=== PATIENT | female | born 1960 | race Two or more races ===

== ENCOUNTER 2016-08-03 15:53 | Inpatient (IN) | payer OTHER ==
[~2016-08-03] VITALS: Ht 157.5 cm; Wt 72.1 kg
[2016-08-03] MEDS ORDERED: IV NS 0.9% 1,000 ML ONE ×2 (16:22→22:09)
[2016-08-03] MEDS ORDERED: ONDANSETRON HCL/PF 4 MG/2 ML VIAL ONE ×2 (16:22→22:08)
[2016-08-03] MEDS ORDERED: IV SET PRIMARY 1 EA INFUS.SET MC ONE ×2 (16:22→18:11)
--- NOTE | 2016-08-03 16:28 | NUR ---
LINE STARTED ON R WRIST G 20, PT TOLERATED WELL
--- NOTE | 2016-08-03 16:29 | NUR ---
LABRATORY AT BEDSIDE FOR BLOOD DRAW
--- NOTE | 2016-08-03 16:29 | NUR ---
PT MEDICATED ORDERED PER DR OLEA
[2016-08-03 16:31] LABS: BASOPHILS # (AUTO) 0.2 /CMM (0.0-0.2); BASOPHILS % (AUTO) 1.3 % (0.0-2.0); EOSINOPHILS # (AUTO) 0.1 /CMM (0.0-0.7); EOSINOPHILS % (AUTO) 0.7 % (0.0-6.0); HEMATOCRIT 43 % (33-45); HEMOGLOBIN 14.8 g/dL (11.5-14.8); MEAN CORPUSCULAR HEMOGLOBIN 30 PG (26.0-33.0); MEAN CORPUSCULAR HGB CONC 35 g/dl (31.0-36.0); MEAN CORPUSCULAR VOLUME 86 fL (82-100); MONOCYTES # (AUTO) 0.1 /CMM (0.1-1.30); MONOCYTES % (AUTO) 1.1 % (2.0-12.0); NEUTROPHILS # (AUTO) 12.2 /CMM (1.8-8.9); NEUTROPHILS % (AUTO) 89.9 % (43.0-81.0); PLATELET COUNT (AUTO) 399 /CMM (150-450); RDW COEFFICIENT OF VARIATION 11.6 (11.5-15.0); RED BLOOD CELL COUNT(AUTO) 4.94 MIL/uL (4.0-5.2); WHITE BLOOD COUNT (AUTO) 13.6 K/uL (4.3-11.0)
[2016-08-03 16:40] LABS: CREATININE 0.8 mg/dL (0.6-1.3); POTASSIUM 3.2 mmol/L (3.5-5.1)
[2016-08-03 16:52] LABS: ALBUMIN 3.7 g/dL (3.4-5.0); BILIRUBIN,DIRECT 0.1 mg/dL (0.0-0.2); TOTAL PROTEIN, SERUM 9.1 g/dL (6.4-8.2)
[2016-08-03] MEDS ORDERED: HYDROCODONE/APAP 5/325MG 1 EACH TABLET PO ONE (17:00)
[2016-08-03] MEDS ORDERED: ONDANSETRON HCL/PF 4 MG/2 ML VIAL IVP ONE (18:00)
[2016-08-03] MEDS ORDERED: METRONIDAZOLE 500MG/ NS 100ML 100 ML IV ONE ×2 (18:00→18:21)
[2016-08-03] MEDS ORDERED: CEFTRIAXONE 1 G in IV D5W 50 ML IV ONE (18:00)
[2016-08-03] MEDS ORDERED: IV NS 0.9% 1,000 ML BAG IV ONE (18:00)
--- NOTE | 2016-08-03 18:00 | NUR ---
DR OLEA ON THE PHONE WITH DR DEJESUS (OUTBOARD TECHNICIAN SURGEON)
[2016-08-03] MEDS ORDERED: CEFTRIAXONE 1GM BAG (ER ONLY) 50 ML IV ONE (18:11)
[2016-08-03] MEDS ORDERED: MORPHINE SULFATE INJ 2 MG/ML DISP.SYRIN ONE ×2 (18:11→22:07)
--- NOTE | 2016-08-03 18:11 | NUR ---
LABRATORY AT BEDSIDE FOR BLOOD DRAW
--- NOTE | 2016-08-03 18:12 | NUR ---
DR OLEA ON THE PHONE WITH ADMITTING DR EMMANUELLE FRAUSTO
[2016-08-03] MEDS ORDERED: IV SET PRIMARY PUMP SET 1 EA INFUS.SET MC ONE ×2 (18:21→22:09)
[2016-08-03] MEDS ORDERED: MORPHINE SULFATE INJ 2 MG/ML DISP.SYRIN IV ONE (18:30)
[2016-08-03] MEDS ORDERED: FAMO40TA7 PO (18:32)
[2016-08-03] MEDS ORDERED: MAG355OR32 PO (18:32)
[2016-08-03 18:37] LABS: INR 1.04 (0.87-1.13); PROTHROMBIN TIME 10.8 SECS (9.5-12.7)
--- NOTE | 2016-08-03 19:20 | NUR ---
DR. DEJESUS AT BEDSIDE FOR MD SEXTON
--- NOTE | 2016-08-03 19:29 | NUR ---
REPORT GIVEN TO KAYDEN GUILLERMO FOR CONTINUITY OF CARE ON MS FLOOR
[2016-08-03 19:47] VITALS: BP 169/102
--- NOTE | 2016-08-03 19:47 | NUR ---
MS RN ADMITTING NOTES: ADMITTED A 56 YO FEMALE PATIENT WHO WAS SEEN IN THE ER DUE TO EPIGASTRIC PAIN AND VOMITING . PATIENT WITH ADMITTING DIAGNOSIS OF CHOLELITHIASIS. PATIENT WAS BROUGHT TO [facility] FLOOR VIA WHEELCHAIR, AOX4, ON ROOM AIR, BREATHING EVEN AND UNLABORED. PATIENT C/O PAIN AT 10/10 OVER EPIGASTRIC AREA RADIATING TO MID UPPER BACK. PATIENT IS ALSO NAUSEOUS. HOB MAINTAINED ELEVATED. PIV OVER R WRIST G20 INTACT AND PATENT TO FLUSH. PROVIDED FOR COMFORT AND SAFETY. BED IN LOWEST AND LOCKED POSITION, SIDERAILS UP X3. MAINTAINED ON NPO. ORIENTED TO UNIT. ADMITTING CARE DONE. WILL CONT TO MONITOR.
[2016-08-03 20:00] VITALS: BP 169/102
--- NOTE | 2016-08-03 20:44 | NUR ---
RN NOTES: PAGED DR JENKINS TO FF UP ON ADMITTING ORDERS.
--- NOTE | 2016-08-03 21:20 | NUR ---
RN NOTES: PAGED EPIC AGAIN TO FFUP ON ADMITTING ORDERS.
[2016-08-03] MEDS ORDERED: HYDROCODONE/APAP 5/325MG 1 EACH TABLET PO PRN (22:00)
[2016-08-03] MEDS ORDERED: MORPHINE SULFATE INJ 2 MG/ML DISP.SYRIN IV PRN (22:00)
[2016-08-03] MEDS ORDERED: ONDANSETRON HCL/PF 4 MG/2 ML VIAL IVP PRN (22:00)
[2016-08-03] MEDS ORDERED: POTASSIUM CL. PREMIX PERIPHER. 100 ML ONE (22:08)
[2016-08-03] MEDS: IV NS 0.9% 1,000 ML IV PRN (22:18)
[2016-08-03] MEDS: POTASSIUM CL. PREMIX PERIPHER. 50 ML IV SCH ×2 (22:29→23:40)
[2016-08-03 22:30] VITALS: BP 147/89
--- NOTE | 2016-08-03 22:47 | NUR ---
RN NOTES: PATIENT WAS SEEN BY DR EMMANUELLE ALCANTARA. PER , ZOSYN TO BE STARTED AT 0000 MIDNIGHT INSTEAD OF AT 0500. MD MADE AWARE OF ANTIBIOTICS STARTED IN THE ER. WILL CONT TO MONITOR.
--- NOTE | 2016-08-03 22:59 | NUR ---
RN NOTES: PATIENT SIGNED CONSENTS FOR LAPAROSCOPIC CHOLECYSTECTOMY, POSS OPEN WITH DR DEJESUS.
[2016-08-03] MEDS ORDERED: PIPERACILLIN /TAZOBACTAM 2.25 G VIAL IV ONE (23:31)
[2016-08-03] MEDS ORDERED: IV D5W 50 ML IV ONE (23:32)
[2016-08-03] MEDS ORDERED: SECONDARY IV SET 1 EA INFUS.SET MC ONE (23:32)
[2016-08-04] MEDS ORDERED: PIPERACILLIN /TAZOBACTAM 4.5 G in IV D5W 50 ML IV SCH ×4 (05:00→08:00)
[2016-08-04] MEDS ORDERED: IV NS 0.9% 1,000 ML ONE (05:49)
[2016-08-04] MEDS: IV NS 0.9% 1,000 ML IV PRN (05:54)
[2016-08-04 06:22] LABS: APPEARANCE,URINE CLEAR (CLEAR); BILIRUBIN,URINE NEGATIVE (NEGATIVE); BLOOD, URINE NEGATIVE Ery/uL (NEGATIVE); COLOR,URINE YELLOW (YELLOW); KETONES,URINE 1+ (NEGATIVE); LEUKOCYTE ESTERASE ,URINE NEGATIVE (NEGATIVE); NITRITE, URINE NEGATIVE (NEGATIVE); PROTEIN,URINE NEGATIVE (NEGATIVE); UGLUCOSE NEGATIVE (NEGATIVE); UROBILINOGEN,URINE 0.2 EU/dL (0.2)
[2016-08-04 06:28] LABS: ADD URINE CULTURE NO; BACTERIA,URINE None seen /HPF (None Seen); RBC,URINE NONE SEEN /HPF (0-2); SQUAMOUS EPITHELIAL CELL,UR Few /HPF (None Seen); WBC,URINE 0-2 /HPF (0-3)
--- NOTE | 2016-08-04 06:49 | NUR ---
MS RN CLOSING NOTES: PATIENT IN BED, AOX4, ON ROOM AIR, BREATHING EVEN AND UNLABORED. STATES THAT PAIN OVER EPIGASTRIC AREA HAS DECREASED, BUT UNABLE TO SCALE. PATIENT WAS ABLE TO SLEEP WELL THROUGH NIGHT. MAINTAINED ON NPO. PIV OVER R WRIST G20 INTACT AND INFUSING WELL WITH NS RUNNING AT 125 ML/HR. DUE MEDS GIVEN. PROVIDED FOR COMFORT AND SAFETY. BED IN LOWEST AND LOCKED POSITION, SIDERAILS UP X3. WILL ENDORSE TO AM RN FOR TYLER.
[2016-08-04 08:00] VITALS: BP 150/82
[2016-08-04] MEDS ORDERED: PIPERACILLIN /TAZOBACTAM 3.375 G in IV D5W 50 ML IV SCH (08:00)
--- NOTE | 2016-08-04 08:03 | NUR ---
MS/RN OPENING NOTE PT. IS IN BED SLEEPING. NO S/S OF DISTRESS, NO SOB, BREATHING IS EVEN AND UNLABORED. PT. IS NPO FOR A POSSIBLE DAY SURGERY OF LAPAROSCOPIC CHOLOCYSTECTOMY. PT. HAS IV FLUIDS RUNNING AT 125ML/HR ON RIGHT WRIST. BED IS IN LOW POSITION, 2 SIDE RAILS UP, AND CALL LIGHT WITHIN REACH.
[2016-08-04 08:40] LABS: BASOPHILS # (AUTO) 0.1 /CMM (0.0-0.2); BASOPHILS % (AUTO) 0.4 % (0.0-2.0); EOSINOPHILS % (AUTO) 0.2 % (0.0-6.0); HEMATOCRIT 43 % (33-45); HEMOGLOBIN 14.6 g/dL (11.5-14.8); LYMPHOCYTES % (AUTO) 5.3 % (20.0-44.0); MEAN CORPUSCULAR HEMOGLOBIN 29 PG (26.0-33.0); MEAN CORPUSCULAR HGB CONC 34 g/dl (31.0-36.0); MEAN CORPUSCULAR VOLUME 86 fL (82-100); MONOCYTES # (AUTO) 0.6 /CMM (0.1-1.30); MONOCYTES % (AUTO) 3.2 % (2.0-12.0); NEUTROPHILS # (AUTO) 16.8 /CMM (1.8-8.9); NEUTROPHILS % (AUTO) 90.9 % (43.0-81.0); PLATELET COUNT (AUTO) 374 /CMM (150-450); RDW COEFFICIENT OF VARIATION 12.5 (11.5-15.0); RED BLOOD CELL COUNT(AUTO) 5.03 MIL/uL (4.0-5.2); WHITE BLOOD COUNT (AUTO) 18.5 K/uL (4.3-11.0)
[2016-08-04 08:52] LABS: CALCIUM, SERUM 8.6 mg/dL (8.5-10.1); CREATININE 0.7 mg/dL (0.6-1.3); MAGNESIUM 1.9 mg/dL (1.8-2.4); PHOSPHORUS 3.2 mg/dL (2.5-4.9); POTASSIUM 3.3 mmol/L (3.5-5.1)
[2016-08-04 08:54] LABS: THYROID STIMULATING HORMONE 0.346 uIU/mL (0.358-3.74)
[2016-08-04] MEDS: PANTOPRAZOLE 40 MG VIAL IV SCH (09:45)
[2016-08-04] MEDS: PIPERACILLIN /TAZOBACTAM 3.375 G in IV D5W 50 ML IV SCH ×3 (10:53→22:56)
--- NOTE | 2016-08-04 10:56 | NUR ---
MS/RN PT. LEFT ROOM PT. LEFT ROOM FOR SURGERY IN STABLE CONDITION.
[2016-08-04] MEDS ORDERED: BUPIVACAINE 0.5 % PF 150 MG/30 ML VIAL ONE (11:03)
[2016-08-04] MEDS ORDERED: FENTANYL PF 100MCG/2ML AMPUL ONE (11:20)
[2016-08-04] MEDS ORDERED: MIDAZOLAM HCL 2 MG/2ML VIAL ONE (11:20)
[2016-08-04] MEDS ORDERED: ROCURONIUM BROMIDE 50 MG/5 ML ONE (11:25)
[2016-08-04] MEDS ORDERED: HYDROMORPHONE INJ 2 MG/ML DISP.SYRIN ONE (12:35)
[2016-08-04] MEDS ORDERED: IV LR 1000 ML 1,000 ML ONE (12:42)
[2016-08-04] MEDS ORDERED: MORPHINE SULFATE INJ 4 MG/ML DISP.SYRIN IV PRN (13:00)
[2016-08-04] MEDS ORDERED: HYDROCODONE/APAP 5/325MG 1 EACH TABLET PO PRN (13:00)
[2016-08-04] MEDS ORDERED: MORPHINE SULFATE INJ 2 MG/ML DISP.SYRIN IV PRN (13:00)
[2016-08-04] MEDS ORDERED: IV D5/0.45 NACL W/20 MEQ KCL 1L IV PRN ×2 (13:00)
[2016-08-04 13:20] VITALS: BP 131/82
--- NOTE | 2016-08-04 13:20 | NUR ---
MS/RN RETURN TO SAME ROOM PT. RETURNED TO SAME ROOM POST SURGERY IN STABLE CONDITION. PT. IS BREATHING ON OXYGEN WITH NASAL CANNULA AT 4L/MIN. REPORT WAS GIVEN BY OR NURSE. NEW ORDERS WERE GIVEN BY DR. DEJESUS AFTER SURGERY.
--- NOTE | 2016-08-04 13:30 | NUR ---
MS/RN INCENTIVE SPIROMETER NEAR BEDSIDE PROVIDE AN INCENTIVE SPIROMETER AND PROVIDED TEACHING WITH USING SPIROMETER, PT. RETURNED SHOWED DEMONSTRATION OF TEACHING.
[2016-08-04] MEDS: HYDROCODONE/APAP 5/325MG 1 EACH TABLET PO PRN ×2 (14:40→21:42)
--- NOTE | 2016-08-04 14:43 | NUR ---
MS/RN PT. VOIDED CLEAR, YELLOW URINE 850ML.
--- NOTE | 2016-08-04 15:00 | NUR ---
MS/RN CHRIS STOCKING APPLIED CHRIS COMPRESSION THIGH HIGH STOCKINGS APPLIED TO BOTH LEGS. NEED TO BE CHANGED ONCE EVERY SHIFT PER MD ORDER. WILL ENDORSE TO DRIVING TEACHER NURSE.
[2016-08-04 16:00] VITALS: BP 121/62
--- NOTE | 2016-08-04 19:00 | NUR ---
MS RN OPENING NOTES: RECEIVED PT IN BED AWAKE WITH SON AT BED SIDE. PT IS A/O X4. PT IS ON NC 2LPM AND IS TOLERATING WELL. PT IS POST SURGERY AND HAS R SIDE MATTHIAS DRAIN. PT HAS IV ON R WRIST #20G AND IS PATENT AND INTACT. FLUIDS ARE INFUSING AT POTASSIUM CHLORIDE 20MEQ IN IV D5 1/2 NS 1,000 ML AT 75ML/HR. NO SIGNS OR SYMPTOMS OF DISTRESS NOTED AT THIS TIME. CALL LIGHT WITHIN PT'S REACH. BED KEPT IN LOCKED, LOWEST POSITION, AND SIDE RAILS X 2 UP. WILL CONTINUE TO MONITOR PT.
[2016-08-04] MEDS ORDERED: IV SET PRIMARY PUMP SET 1 EA INFUS.SET MC ONE (19:11)
--- NOTE | 2016-08-04 19:30 | NUR ---
MS/RN CLOSING NOTE PT. IS SITTING UP IN BED WITH FAMILY NEAR BEDSIDE. PT. IS AWAKE, A&OX4. NO S/S OF DISTRESS, NO SOB, PT. IS BREATHING ON OXYGEN WITH NASAL CANNULA AT 2 L/MIN. PT IS WEARING SCD PUMPS, AND THIGH HIGH CHRIS STOCKINGS ON BOTH LEGS. PT. TOLERATED REGULAR DIET PO INTAKE. PT. HAS 4 WOUND DRESSING SITES, INCLUDING J PEG SITE. REMOVED 25 ML FROM J PEG ON PT.'S RIGHT SIDE. PT. HAS IV ANTIBIOTIC RUNNING AT 100ML/HR ON RIGHT WRIST IV SITE. INCENTIVE SPIROMETER IS NEAR BEDSIDE. BED IS IN LOW POSITION, 2 SIDE RAILS UP, CALL LIGHT WITHIN REACH, AND ALL NEEDS ATTENDED TO. WILL ENDORSE REPORT TO AUDIO ENGINEER NURSE.
[2016-08-04 20:00] VITALS: BP 109/63
--- NOTE | 2016-08-04 21:42 | NUR ---
MS RN NOTES: PT COMPLAINED OF 7/10 ABDOMINAL PAIN. NORCO 5-325 (2 TABLETS) WAS GIVEN. WILL CONTINUE TO MONITOR PT.
[2016-08-04] MEDS ORDERED: ZOLPIDEM TARTRATE 5 MG TABLET PO PRN (22:00)
[2016-08-05] MEDS: PIPERACILLIN /TAZOBACTAM 3.375 G in IV D5W 50 ML IV SCH ×2 (05:01→14:25)
--- NOTE | 2016-08-05 07:00 | NUR ---
MS RN CLOSING NOTES: ALL NEEDS WERE ATTENDED AND ANTICIPATED FOR. PT ASLEEP IN BED. NO SIGNS OR SYMPTOMS OF DISTRESS NOTED AT THIS TIME. PT KEPT CLEAN, DRY, AND COMFORTABLE. CALL LIGHT WITHIN PT'S REACH. BED KEPT IN LOCKED, LOWEST POSITION, AND SIDE RAILS X 2 UP. IV IS ON R WRIST #20G AND IS PATENT AND INTACT. FLUIDS ARE INFUSING WITH POTASSIUM CHLORIDE 20MEQ IN IV D5 1/2 NS 1,000ML AT 75ML/HR. R SIDE JPEG OUTPUT WAS 12CC. ENDORSED TO AM NURSE FOR CONTINUITY OF CARE.
--- NOTE | 2016-08-05 07:15 | NUR ---
MS/RN OPENING NOTE PT. IS IN BED SLEEPING. NO S/S OF DISTRESS, NO SOB, BREATHING IS EVEN AND UNLABORED. PT. HAS IV FLUIDS RUNNING AT 75 ML/HR ON RIGHT WRIST. BED IS IN LOW POSITION, 2 SIDE RAILS UP, AND CALL LIGHT WITHIN REACH.
[2016-08-05 08:00] VITALS: BP 122/63
[2016-08-05] MEDS: PANTOPRAZOLE 40 MG VIAL IV SCH (08:33)
[2016-08-05] MEDS: HYDROCODONE/APAP 5/325MG 1 EACH TABLET PO PRN (08:34)
--- NOTE | 2016-08-05 08:44 | NUR ---
MS/RN RIGHT IV INFILTRATION RIGHT WRIST IV SITE WAS SWOLLEN. RIGHT ARM WAS ELEVATED WITH 2 PILLOWS.
--- NOTE | 2016-08-05 09:00 | NUR ---
MS/RN NEW IV SITE NEW IV SITE WAS PLACED WITHOUT COMPLICATIONS ON LEFT HAND, GAUGE 22.
[2016-08-05] MEDS ORDERED: SENNOSIDES/DOCUSATE SODIUM 1 TAB TABLET PO PRN (11:00)
[2016-08-05] MEDS ORDERED: CIPR-262 PO (11:05)
[2016-08-05] MEDS ORDERED: METR-105 PO (11:05)
--- NOTE | 2016-08-05 14:00 | NUR ---
MS/RN REMOVED ADDISON MYERS DRAIN FROM RIGHT SIDE.
--- NOTE | 2016-08-05 14:56 | NUR ---
MS/RN J PEG DRAIN REMOVED.
[2016-08-05 16:00] VITALS: BP 122/66
--- NOTE | 2016-08-05 17:30 | NUR ---
MS/STITCHER HAND PT. WAS DISCHARGED HOME. PT. LEFT SOH WITH DAUGHTER IN A CAR. DISCHARGE PACKET INSTRUCTIONS WERE GIVEN, AND MEDICATIONS WERE PROVIDED AND PT. VERBALIZED UNDERSTANDING. REMOVED PT. ID BRACELET, AND IV. BELONGING LIST CHECKED.
== END 2016-08-05 17:37 | disposition home or self-care (01) | DRG 263 ==
LOC: ER 15:58 → MED 20:13
PROC: 0FT44ZZ Resection of Gallbladder, Percutaneous Endoscopic Approach (ICD-10-PCS; principal; 2016-08-03)
DX: K80.00 Calculus of gallbladder with acute cholecystitis without obstruction (principal); E87.1 Hypo-osmolality and hyponatremia; I10 Essential (primary) hypertension; E66.9 Obesity, unspecified; E87.6 Hypokalemia; N13.30 Unspecified hydronephrosis; Z85.41 Personal history of malignant neoplasm of cervix uteri; K82.8 Other specified diseases of gallbladder
CPT/HCPCS: 36415; 71010-TC; 76705-TC; 80048-TC; 80061-TC; 80076-TC; 81000-TC; 83605-TC; 83690-TC; 83735-TC; 84100-TC; 84443-TC; 85025-TC; 85730-TC; 86850-TC; 87040-TC; 87081-TC; 88304-TC; 88305-TC; A4606; C9113; J0690; J0696; J1100; J1170; J2250; J2270; J2405; J2543; J2704; J2710; J3010; J3480; J3490; J7030; J7060; J7120; Z7610